=== PATIENT | female | born 1995 | race Caucasian/White ===

== ENCOUNTER 2019-06-24 14:50 | Emergency (ER) | payer OTHER ==
[~2019-06-24] VITALS: Ht 165.1 cm; Wt 70.3 kg
[2019-06-24 15:16] VITALS: BP 133/76
--- NOTE | 2019-06-24 15:23 | NUR ---
WAIT AT LOBBY. HANDED ON URINE CUP.
[2019-06-24] MEDS ORDERED: NACL 0.9% 1,000 ML IV ONE (15:45)
[2019-06-24] MEDS ORDERED: ONDANSETRON 4 MG ODT PO ONE (15:45)
--- NOTE | 2019-06-24 16:37 | NUR ---
PT IN ULTRASOUND
[2019-06-24] MEDS ORDERED: ONDANSETRON 4 MG ODT ONE (16:58)
[2019-06-24 17:07] LABS: BASOPHILS # (AUTO) 0.1 K/uL (0.00-0.22); BASOPHILS % (AUTO) 0.5 % (0.0-2.0); EOSINOPHILS % (AUTO) 0.3 % (0.0-4.0); HEMATOCRIT 41.2 % (36-48); HEMOGLOBIN 14.1 g/dL (12.0-16.0); LYMPHOCYTES # (AUTO) 2.3 K/uL (2.5-16.5); LYMPHOCYTES % (AUTO) 21.3 % (20.5-51.1); MEAN CORPUSCULAR HEMOGLOBIN 31 pg (27-31); MEAN CORPUSCULAR HGB CONC 34 g/dL (33-37); MEAN CORPUSCULAR VOLUME 89.4 fL (80-94); MONOCYTES # (AUTO) 0.5 K/uL (0.8-1.0); MONOCYTES % (AUTO) 4.6 % (1.7-9.3); NEUTROPHILS # (AUTO) 7.9 K/uL (1.8-7.7); NEUTROPHILS % (AUTO) 73.3 % (42.2-75.2); PLATELET COUNT (AUTO) 299 K/uL (140-450); RED BLOOD CELL COUNT(AUTO) 4.61 MIL/uL (4.20-5.40); RED CELL DISTRIBUTION WIDTH 12.3 % (11.6-13.7); WHITE BLOOD COUNT (AUTO) 10.8 K/uL (4.8-10.8)
[2019-06-24 17:17] LABS: APPEARANCE,URINE CLEAR (CLEAR); BILIRUBIN,URINE NEGATIVE (NEGATIVE); BLOOD, URINE NEGATIVE (NEGATIVE); COLOR,URINE YELLOW (YELLOW); LEUKOCYTE ESTERASE ,URINE NEGATIVE (NEGATIVE); NITRITE, URINE NEGATIVE (NEGATIVE); PH,URINE 5.5 (5.0-9.0); UGLUCOSE NEGATIVE (NEGATIVE)
--- NOTE | 2019-06-24 17:20 | NUR ---
DR. NUNEZ AT BEDSIDE.
--- NOTE | 2019-06-24 17:29 | NUR ---
Patient being evaluated by DR NUNEZ at bedside.
[2019-06-24] MEDS ORDERED: ACETAMINOPHEN EXTRA STRENGTH 500 MG TAB PO ONE (17:30)
[2019-06-24 17:32] LABS: ANION GAP 13.3 (8-16); CARBON DIOXIDE 26.8 mmol/L (21-32); CREATININE 0.8 mg/dL (0.6-1.3); POTASSIUM 4.1 mmol/L (3.5-5.1); TOTAL BILIRUBIN 0.5 mg/dL (0.0-1.0)
--- NOTE | 2019-06-24 17:32 | NUR ---
23 Y/F PRESENTS TO ED FOR L SHOULDER PAIN X 5 DAYS THAT RADIATES TO NECK. PT DENIES INJURY. PT ALSO REPORTS SHE FOUND OUT SHE IS OF YESTERDAY. REPORTS THIS IS HER 1ST . PT HAS HAD LOW BACK PAIN X 2 DAY, DENIES DYURIA, HEMATURIA OR VAGINAL DISCHARGE. PT REPORTS A LITTLE UNCOMFORTABLE AFTER VOIDING. PT HAS HAD N/V/D X 2 DAY. PT A &O X 4. LUNGS CLEAR, ABD SOFT. SKIN INTACT. PMH- DEPRESSION, HERPES NKDA RX- ACYCLOVIR AND LATUDA
[2019-06-24 19:05] VITALS: BP 123/64
--- NOTE | 2019-06-24 19:06 | NUR ---
Patient discharged with v/s stable. Written and verbal after care instructions given and explained. Patient alert, oriented and verbalized understanding of instructions. Ambulatory with steady gait. All questions addressed prior to discharge. ID band removed. Patient advised to follow up with PMD. Rx of VIT given. Patient educated on indication of medication including possible reaction and side effects. Opportunity to ask questions provided and answered.
== END 2019-06-24 19:06 | disposition home or self-care (01) ==
LOC: MED 14:50
DX: O26.899 Other specified pregnancy related conditions, unspecified trimester (principal); R10.2 Pelvic and perineal pain; M79.10 Myalgia, unspecified site; M54.6 Pain in thoracic spine; F32.9 Major depressive disorder, single episode, unspecified
CPT/HCPCS: 36415; 76817; 80053; 81003; 82150; 83690; 84702; 85025; 99284; J7030; Q0092; Q0162

== ENCOUNTER 2019-09-12 19:19 | Emergency (ER) | payer OTHER ==
[~2019-09-12] VITALS: Ht 165.1 cm; Wt 67.6 kg
[2019-09-12 19:24] VITALS: BP 102/63
[2019-09-12 20:47] LABS: BASOPHILS % (AUTO) 0.2 % (0.0-2.0); EOSINOPHILS % (AUTO) 0.2 % (0.0-4.0); HEMATOCRIT 39.1 % (36-48); HEMOGLOBIN 13.1 g/dL (12.0-16.0); LYMPHOCYTES # (AUTO) 2.5 K/uL (2.5-16.5); LYMPHOCYTES % (AUTO) 22.7 % (20.5-51.1); MEAN CORPUSCULAR HEMOGLOBIN 30 pg (27-31); MEAN CORPUSCULAR HGB CONC 34 g/dL (33-37); MEAN CORPUSCULAR VOLUME 89.7 fL (80-94); MONOCYTES # (AUTO) 0.5 K/uL (0.8-1.0); MONOCYTES % (AUTO) 4.8 % (1.7-9.3); NEUTROPHILS # (AUTO) 7.9 K/uL (1.8-7.7); NEUTROPHILS % (AUTO) 72.1 % (42.2-75.2); PLATELET COUNT (AUTO) 260 K/uL (140-450); RED BLOOD CELL COUNT(AUTO) 4.36 MIL/uL (4.20-5.40); RED CELL DISTRIBUTION WIDTH 12.9 % (11.6-13.7); WHITE BLOOD COUNT (AUTO) 10.9 K/uL (4.8-10.8)
[2019-09-12 21:13] LABS: ANION GAP 16.1 (8-16); CARBON DIOXIDE 23.5 mmol/L (21-32); CREATININE 0.5 mg/dL (0.6-1.3); POTASSIUM 3.6 mmol/L (3.5-5.1)
[2019-09-12 21:14] LABS: ALBUMIN 3.5 g/dL (3.4-5.0); TOTAL BILIRUBIN 0.2 mg/dL (0.0-1.0)
[2019-09-12] MEDS ORDERED: DICYCLOMINE 10 MG CAP PO ONE (21:25)
[2019-09-12] MEDS ORDERED: NACL 0.9% 1,000 ML IV ONE (21:25)
[2019-09-12 22:34] LABS: APPEARANCE,URINE CLEAR (CLEAR); COLOR,URINE YELLOW (YELLOW)
[2019-09-12 22:35] LABS: UGLUCOSE NEGATIVE (NEGATIVE)
[2019-09-12 22:36] LABS: BILIRUBIN,URINE NEGATIVE (NEGATIVE); BLOOD, URINE NEGATIVE (NEGATIVE); LEUKOCYTE ESTERASE ,URINE NEGATIVE (NEGATIVE); NITRITE, URINE NEGATIVE (NEGATIVE)
[2019-09-12] MEDS ORDERED: ONDANSETRON 4 MG ODT PO STA (23:09)
[2019-09-12] MEDS ORDERED: ONDANSETRON 4 MG ODT ONE (23:11)
[2019-09-12 23:15] VITALS: BP 108/77
== END 2019-09-12 23:15 | disposition home or self-care (01) ==
LOC: MED 19:19
DX: O26.892 Other specified pregnancy related conditions, second trimester (principal); R10.11 Right upper quadrant pain; E86.0 Dehydration; Z3A.17 17 weeks gestation of pregnancy
CPT/HCPCS: 36415; 76705; 80053; 81003; 81025; 82150; 83690; 85025; 96360; 99284; J7030; Q0092; Q0162

== ENCOUNTER 2020-07-16 18:54 | Emergency (ER) | payer OTHER ==
[~2020-07-16] VITALS: Ht 167.6 cm; Wt 70.3 kg
[2020-07-16 19:09] VITALS: BP 101/64
--- NOTE | 2020-07-16 19:09 | NUR ---
TO BED AMBULATORY
[2020-07-16 19:28] VITALS: BP 121/71
--- NOTE | 2020-07-16 19:29 | NUR ---
see complete assessment.
--- NOTE | 2020-07-16 19:51 | NUR ---
Dr. Peters examining patient.
[2020-07-16] MEDS ORDERED: LIDOCAINE VISCOUS 2% 20 ML UDC ONE (20:10)
[2020-07-16] MEDS ORDERED: ALUMINUM HYD/MAG/SIMETHICONE 30 ML UDC ONE (20:11)
[2020-07-16] MEDS ORDERED: DICYCLOMINE HCL LIQUID 10 MG/5 ML UDC ONE (20:11)
[2020-07-16 20:12] LABS: BASOPHILS % (AUTO) 0.6 % (0.0-2.0); EOSINOPHILS # (AUTO) 0.1 K/uL (0-0.4); EOSINOPHILS % (AUTO) 2.2 % (0.0-4.0); HEMATOCRIT 44.8 % (36-48); HEMOGLOBIN 15.3 g/dL (12.0-16.0); LYMPHOCYTES # (AUTO) 2.4 K/uL (2.5-16.5); LYMPHOCYTES % (AUTO) 37.7 % (20.5-51.1); MEAN CORPUSCULAR HEMOGLOBIN 31 pg (27-31); MEAN CORPUSCULAR HGB CONC 34 g/dL (33-37); MEAN CORPUSCULAR VOLUME 89.4 fL (80-94); MONOCYTES # (AUTO) 0.3 K/uL (0.8-1.0); MONOCYTES % (AUTO) 5.5 % (1.7-9.3); NEUTROPHILS # (AUTO) 3.4 K/uL (1.8-7.7); PLATELET COUNT (AUTO) 244 K/uL (140-450); RED BLOOD CELL COUNT(AUTO) 5.01 MIL/uL (4.20-5.40); RED CELL DISTRIBUTION WIDTH 11.9 % (11.6-13.7); WHITE BLOOD COUNT (AUTO) 6.3 K/uL (4.8-10.8)
[2020-07-16] MEDS: DICYCLOMINE HCL LIQUID 20 MG, ALUMINUM HYD/MAG/SIMETHICONE 30 ML, LIDOCAINE VISCOUS 2% ... PO ONE ×3 (20:21)
[2020-07-16 20:26] LABS: ALBUMIN 4.6 g/dL (3.4-5.0); CARBON DIOXIDE 25.8 mmol/L (21-32); CREATININE 0.7 mg/dL (0.6-1.3); MAGNESIUM 2.2 mg/dL (1.8-2.4); POTASSIUM 3.8 mmol/L (3.5-5.1); TOTAL BILIRUBIN 0.5 mg/dL (0.0-1.0)
[2020-07-16] MEDS ORDERED: FAMO-90 PO (20:57)
--- NOTE | 2020-07-16 21:03 | NUR ---
d/c with VSS. d/c education given. opportunity to ask questions given and answered. rx of pepcid
== END 2020-07-16 21:03 | disposition home or self-care (01) ==
LOC: MED 18:54
DX: K21.9 Gastro-esophageal reflux disease without esophagitis (principal)
CPT/HCPCS: 36415; 80053; 81002; 81025; 83735; 84484; 85025; 99283

== ENCOUNTER 2021-06-13 17:20 | Emergency (ER) | payer OTHER ==
[~2021-06-13] VITALS: Ht 167.6 cm; Wt 53.6 kg
[~2021-06-13 17:20] MED LIST: FAMO-90 PO
[2021-06-13 17:41] VITALS: BP 137/96
== END 2021-06-13 19:47 | disposition left against medical advice (07) ==
LOC: MED 17:20
DX: R03.0 Elevated blood-pressure reading, without diagnosis of hypertension (principal); Z79.899 Other long term (current) drug therapy
CPT/HCPCS: 81002; 81025; 99282